=== PATIENT | female | born 1950 | race Caucasian/White ===

== ENCOUNTER 2021-10-23 11:13 | Emergency (ER) | payer MEDICAID, OTHER ==
[~2021-10-23] VITALS: Ht 162.6 cm; Wt 72.7 kg
[2021-10-23] MEDS ORDERED: TRAM50TA4 PO (12:01)
[2021-10-23] MEDS ORDERED: NAPR-1025 PO (12:28)
[2021-10-23 12:29] VITALS: BP 148/88
== END 2021-10-23 13:24 | disposition home or self-care (01) ==
LOC: EMS 11:13
DX: S63.602A Unspecified sprain of left thumb, initial encounter (principal); I10 Essential (primary) hypertension; X50.0XXA Overexertion from strenuous movement or load, initial encounter; Y93.89 Activity, other specified; Y92.89 Other specified places as the place of occurrence of the external cause; Y99.8 Other external cause status
CPT/HCPCS: 99283

== ENCOUNTER 2024-07-06 14:45 | Emergency (ER) | payer OTHER ==
[~2024-07-06] VITALS: Ht 160 cm; Wt 70.0 kg
[~2024-07-06 14:45] MED LIST: NAPR-1025 PO
[2024-07-06 14:58] VITALS: BP 136/73; PULSE 74; RESP 14; TEMP 98; O2SAT 98
[2024-07-06] MEDS ORDERED: IBUP-1554 PO (18:57)
[2024-07-06] MEDS ORDERED: ACET-66 PO (18:57)
== END 2024-07-06 19:25 | disposition home or self-care (01) ==
LOC: EMS 14:45
DX: S86.911A Strain of unspecified muscle(s) and tendon(s) at lower leg level, right leg, initial encounter (principal); I10 Essential (primary) hypertension; W19.XXXA Unspecified fall, initial encounter; Y93.89 Activity, other specified; Y92.89 Other specified places as the place of occurrence of the external cause; Y99.8 Other external cause status
CPT/HCPCS: 99283